=== PATIENT | male | born 1950 | race Caucasian/White ===

== ENCOUNTER → 2016-09-12 14:03 | Outpatient (CLI) | payer MEDICARE, BC, OTHER | END | disposition home or self-care (01) | LOC: D.MRI 14:03 | DX: M54.6 Pain in thoracic spine (principal) ==

== ENCOUNTER → 2016-10-24 10:39 | Outpatient (CLI) | payer MEDICARE, BC, OTHER | END | disposition home or self-care (01) | LOC: D.MRI 10:39 | DX: M54.2 Cervicalgia (principal) ==

== ENCOUNTER → 2018-12-20 22:14 | Outpatient (CLI) | payer MEDICARE, BC, OTHER | END | disposition home or self-care (01) | LOC: D.LABREF 22:14 | PROVIDERS: ATTEND Urology | DX: R31.9 Hematuria, unspecified (principal) ==

== ENCOUNTER 2019-01-04 07:30 | Day surgery (SDC) | payer MEDICARE, BC, OTHER ==
[2019-01-03 10:34] LABS: HEMATOCRIT 39.8 % (42.0-54.0); HEMOGLOBIN 13.7 g/dL (13.5-17.5); MCH 30.2 pg (26.0-34.0); MCHC 34.4 g/dL (31.0-37.0); MCV 87.9 fL (80.0-100.0); MEAN PLATELET VOLUME 8.9 fL (7.4-10.4); RBC 4.53 10x6/uL (4.20-6.10); RDW 13.1 % (11.5-14.5); WBC 4.6 10x3/uL (4.8-10.8)
[2019-01-03 10:42] LABS: CALC OSMOLALITY 288 mosm/kg (275-300); CALCIUM 8.5 mg/dL (8.5-10.1); CARBON DIOXIDE 27.7 mmol/L (21.0-32.0); CHLORIDE - SERUM 108 mmol/L (98-107); CREATININE - SERUM 0.7 mg/dL (0.6-1.3); GLUCOSE 101 mg/dL (74-106); POTASSIUM - SERUM 4.2 mmol/L (3.5-5.1); SODIUM 144 mmol/L (136-145); UREA NITROGEN 17 mg/dL (7-18); eGFR NON AFRICAN AMERICAN > 90 mL/min (90-120)
[~2019-01-04] VITALS: Ht 188 cm; Wt 111.6 kg
[~2019-01-04 07:30] MED LIST: BAYER CHEWABLE81 MG PO; BENICAR HCT 201 EAC1 PO; CARDURA8 MG PO; CLARITIN 10 MG10 MG PO; FLUTICASONE PRO16 GM NASAL; FOLBIC RF TABL1 EACH PO; KLONOPIN0.5 MG PO; KLOR-CON M1515 MEQ PO; NORVASC10 MG PO; TRAZODONE HCL150 MG PO; XANAX0.5 MG PO; ZOLOFT100 MG PO
[2019-01-04 08:46] VITALS: BP 135/73; Ht 188 cm; Wt 111.6 kg
--- NOTE | 2019-01-04 14:42 | NUR ---
1415-RECD TO ROOM. ALERT. IV PATENT. RESP WITH EASE. DENIES PAIN. 1425-UP TO BATHROOM, VOIDS. 1430-FULL LIQUIDS SERVED.
--- NOTE | 2019-01-04 15:14 | OP ---
PATIENT NAME: SUNSHINE WARNER MEDICAL RECORD: [id number] :48 LOCATION:[facility] ADMISSION DATE: SURGEON: LINK SOUSA MD DATE OF OPERATION: 01/04/2019 SURGEON: Link Sousa MD ANESTHESIA: General anesthesia by David Alexandre CRNA DIAGNOSES: Gross hematuria, nonobstructive BPH, right ureteral stone which has passed. PROCEDURE: Cystoscopy, right retrograde pyelogram, right ureteroscopy and right ureteral stent insertion with string attached 6-Austrian x 24 cm. FINDINGS: On cystoscopy, enlarged lateral prostatic lobes with no bladder tumors. Single ureteral orifices bilaterally. On the right retrograde pyelogram, there is right hydroureteronephrosis down to the right UV junction. On the right ureteroscopy, there is no stone seen in the right ureter. BLOOD LOSS: None. CLINICAL HISTORY: This is a 68-year-old male, who was referred by Dr. Hopper for gross hematuria and right flank pain. He had a CT scan performed at that time, which shows a 3 mm stone at the right UV junction with proximal hydronephrosis. Otherwise, the kidneys are normal. He has no significant voiding symptoms. He does have gross hematuria. We are performing cystoscopy as part of his gross hematuria workup. Also, I will perform a right retrograde pyelogram to see if the stone may still be present. If it is present, we will remove it with ureteroscopy. HE IS ALLERGIC TO TETANUS. He was given Ancef manager organizational to the OR. DESCRIPTION OF PROCEDURE: The patient was initially given IV sedation. He was then placed into lithotomy position and prepped and draped. We performed fluoroscopy. This showed a radiodensity in the pelvis, which may be a phlebolith. However, since we did not know for sure that this may be the stone, we decided to proceed with cystoscopy and a right retrograde pyelogram. The scope was introduced. A 21-Austrian scope was used. The prostate lateral lobes are enlarged, but I do not think that they are obstructive. He does not have any significant median lobe. Going into the bladder, no bladder tumors were seen. He has single ureteral orifices bilaterally. A right retrograde pyelogram was then performed by injecting diluted contrast into a right ureteral catheter. This retrograde pyelogram shows right-sided hydronephrosis. In fact hydroureteronephrosis all the way down to the UV junction. There is rather sluggish drainage from the right side. I therefore decided to proceed with right ureteroscopy to determine if the stone was still present. A Sensor wire was placed up the lumen of the ureteral catheter into the renal pelvis. Over the wire, we dilated the right ureteral orifice to 16 atmospheres for a few seconds with a ureteral access dilation balloon. This was 21-Austrian x 4 cm in length. Finally, the rigid ureteroscope was introduced. Ureteroscopy did not show any visible stones up to the right proximal ureter. He probably has recently passed the stone. The ureteroscope was then removed entirely. The guidewire was backloaded onto the cystoscope, which was inserted back into the bladder. Over the guidewire, we inserted a right ureteral stent 6-Austrian x 24 cm in length. Once the stent was in correct position, the distal end of the OPERATIVE REPORT [id number] SUNSHINE WARNER stent was pushed in using a pusher. The wire was withdrawn entirely to allow the proximal end to coil. The distal end also coiled spontaneously. The bladder was emptied through the cystoscope sheath. I will see the patient in followup next week to have the stent removed. 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
== END 2019-01-04 15:15 | disposition home or self-care (01) ==
LOC: D.OPS 07:30 → D.PAN 11:45 → D.OPS 15:15
PROVIDERS: Anesthesiology; ATTEND Urology
DX: N40.0 Benign prostatic hyperplasia without lower urinary tract symptoms (principal); R31.0 Gross hematuria; N13.30 Unspecified hydronephrosis; Z88.7 Allergy status to serum and vaccine; Z01.812 Encounter for preprocedural laboratory examination